=== PATIENT | male | born 1955 | race Caucasian/White ===

== ENCOUNTER 2016-09-13 07:22 | Outpatient (CLI) | payer OTHER ==
[2015-04-15 14:28] VITALS: BP 145/63
[2016-09-13 07:59] LABS: eGFR (African) > 60; eGFR (Non-African) > 60
== END 2016-09-13 08:00 ==
LOC: LAB 07:22
PROVIDERS: ATTEND Family Medicine
DX: G40.409 Other generalized epilepsy and epileptic syndromes, not intractable, without status epilepticus (principal); I10 Essential (primary) hypertension
CPT/HCPCS: 36415; 80053; 80185